=== PATIENT | male | born 1990 | race African-American/Black ===

== ENCOUNTER 2016-12-28 14:29 | Emergency (ER) | payer SELFPAY ==
--- NOTE | 2016-12-28 14:34 | ER Document Report ---
ED Medical Screen (RME) - General Stated Complaint: TOOTH PAIN Time seen by provider: 14:32 Mode of Arrival: Ambulatory Information source: Patient Notes: 26-year-old male presents to ED for dental pain times a week. Top left jaw pain states he has 2 broken teeth in this area is not sure which tooth is the one giving him the pain I have greeted and performed a rapid initial assessment of this patient. A comprehensive ED assessment and evaluation of the patient, analysis of test results and completion of medical decision making process will be conducted by an additional ED providers. TRAVEL OUTSIDE OF THE [place] IN LAST 30 DAYS: No - Related Data Allergies/Adverse Reactions: No Known Allergies Allergy (Verified 12/28/16 14:32) Past Medical History Pulmonary Medical History: Reports: Hx Bronchitis Musculoskeltal Medical History: Reports Hx Musculoskeletal Trauma Traumatic Medical History: Reports: Hx Fractures - left ankle - Immunizations Immunizations up to date: Yes Hx Diphtheria, Pertussis, Tetanus Vaccination: Yes
[2016-12-28] MEDS ORDERED: IBUPROFEN 800 MG TABLET PO ONE (14:36)
--- NOTE | 2016-12-28 16:22 | ER Document Report ---
ED Oral Problem - General Time seen by provider: 17:30 Mode of Arrival: Ambulatory Information source: Patient TRAVEL OUTSIDE OF THE [place] IN LAST 30 DAYS: No - HPI Patient complains to provider of: Toothache Onset: Last week Onset: Gradual Quality of pain: Achy, Throbbing Associated symptoms: Dental decay - General Chief Complaint: Toothache Stated Complaint: TOOTH PAIN Notes: Patient is a 26-year-old male since the emergency department with complaints of toothache. Patient states that 2-3 years ago his tooth broke off, and he has several others in poor condition. Patient states over the past week he has had increased pain to his mouth and jaw and there is areas where the pertinent to this. Patient's complaint is primarily to the right upper teeth and gum line. Patient states that his pain radiates all across his mouth. Patient states that he does not have a dentist or dental insurance. Patient has no known allergies. (MARIO BARBOSA) - Related Data Allergies/Adverse Reactions: No Known Allergies Allergy (Verified 12/28/16 14:32) Past Medical History - General Information source: Patient - Social History Smoking Status: Current Every Day Smoker Chew tobacco use (# tins/day): No Frequency of alcohol use: Occasional Drug Abuse: None Family History: Reviewed & Not Pertinent, Arthritis, CAD, CVA, DM, Hyperlipidemia, Hypertension, Malignancy, Thyroid Disfunction Patient has suicidal ideation: No Patient has homicidal ideation: No Pulmonary Medical History: Reports: Hx Bronchitis Musculoskeltal Medical History: Reports Hx Musculoskeletal Trauma Traumatic Medical History: Reports: Hx Fractures - left ankle Surgical Hx: Negative - Immunizations Immunizations up to date: Yes Hx Diphtheria, Pertussis, Tetanus Vaccination: Yes Review of Systems - Review of Systems Constitutional: No symptoms reported EENT: See HPI, Dental problem Cardiovascular: No symptoms reported Respiratory: No symptoms reported Gastrointestinal: No symptoms reported Genitourinary: No symptoms reported Male Genitourinary: No symptoms reported Musculoskeletal: No symptoms reported Skin: No symptoms reported Hematologic/Lymphatic: No symptoms reported Neurological/Psychological: No symptoms reported -: Yes All other systems reviewed and negative Physical Exam - Vital signs Interpretation: Normal - General General appearance: Appears well, Alert In distress: Mild - HEENT Head: Normocephalic, Atraumatic Eyes: Normal Pupils: PERRL Mouth/Lips: Other - dental decay on the right upper teeth, numbers 12, 13, 15 Mucous membranes: Normal - Respiratory Respiratory status: No respiratory distress Chest status: Nontender Breath sounds: Normal Chest palpation: Normal - Cardiovascular Rhythm: Regular Heart sounds: Normal auscultation Murmur: No - Abdominal Inspection: Normal Distension: No distension Bowel sounds: Normal Tenderness: Nontender Organomegaly: No organomegaly - Back Back: Normal, Nontender - Extremities General upper extremity: Normal inspection, Normal ROM, Normal strength General lower extremity: Normal inspection, Normal ROM, Normal strength - Neurological Neuro grossly intact: Yes Cognition: Normal Orientation: AAOx4 Raphael Coma Scale Eye Opening: Spontaneous Raphael Coma Scale Verbal: Oriented Raphael Coma Scale Motor: Obeys Commands Raphael Coma Scale Total: 15 Speech: Normal - Psychological Associated symptoms: Normal affect, Normal mood - Skin Skin Temperature: Warm Skin Moisture: Dry Skin Color: Normal Course - Re-evaluation Re-evalutation: 12/28/16 Patient is a 26-year-old male who comes in complaining of dental pain. Patient has had cracked teeth recently started hurting again. He is supposed to be following up with a dentist this week. Patient will be started on penicillin and given pain medication. No evidence for abscess at this time. Stable for discharge. Return if any worsening or concerning symptoms. Understands and agrees with plan. (MERYL SALEH) - Vital Signs Vital signs: Temp Pulse Resp BP Pulse Ox 98.0 F 69 16 132/78 H 98 12/28/16 14:34 12/28/16 16:32 12/28/16 16:32 12/28/16 16:32 12/28/16 16:32 (MARIO BARBOSA) (MERYL SALEH) Discharge - Discharge Clinical Impression: Toothache, Dental caries Condition: Stable Disposition: HOME, SELF-CARE Instructions: Toothache ([facility]), Penicillin V K ([facility]), Oral Narcotic Medication ( [facility]) Prescriptions: Oxycodone HCl/Acetaminophen [Percocet 5-325 mg Tablet] 1 - 2 tab PO BIDP PRN # 15 tablet PRN Reason: Penicillin V Potassium [Penicillin Vk 500 mg Tablet] 500 mg PO QID #40 tablet Forms: Elevated Blood Pressure, Return to Work Scribe Attestation: 12/28/16 21:48 I personally performed the services described in the documentation, reviewed and edited the documentation which was dictated to the scribe in my presence, and it accurately records my words and actions. (MERYL SALEH) Scribe Documentation - Scribe Written by Caty:: Mario Barbosa 12/28/16 19:20 acting as scribe for :: Dany
[2016-12-28 16:34] VITALS: BP 132/78
== END 2016-12-28 16:32 | disposition home or self-care (01) ==
LOC: ER 14:29
DX: K02.9 Dental caries, unspecified (principal); K08.9 Disorder of teeth and supporting structures, unspecified; F17.200 Nicotine dependence, unspecified, uncomplicated
CPT/HCPCS: 99282

== ENCOUNTER 2017-09-10 09:22 | Emergency (ER) | payer SELFPAY ==
[2017-09-10] MEDS ORDERED: NORMAL SALINE 1000 ML 1,000 ML IV ONE (11:25)
[2017-09-10] MEDS ORDERED: PROCHLORPERAZINE EDISYLATE INJ 10 MG/2 ML VIAL IV ONE (11:30)
[2017-09-10] MEDS ORDERED: DIPHENHYDRAMINE HCL 50 MG/ML VIAL IV ONE (11:33)
--- NOTE | 2017-09-10 11:34 | ER Document Report ---
ED Headache - General Chief Complaint: Headache >24 hrs old Stated Complaint: HEADACHE Time Seen by Provider: 09/10/17 10:41 Mode of Arrival: Ambulatory Information source: Patient Notes: Patient is a 26-year-old male who was diagnosed in presenting this year with glaucoma, who takes eyedrops every night, who presents to the ER today for right sided headache, that feels like it is behind his eye but also on the entire right side of his head. Patient states this been going on for 3 days. He has no history of migraines. He states he has been taking ibuprofen and Tylenol at home which have not been helping. He admits to light sensitivity and blurred vision in the right eye but states that that is not new. He denies any nausea, vomiting, fevers or chills. TRAVEL OUTSIDE OF THE [place] IN LAST 30 DAYS: No - Related Data Allergies/Adverse Reactions: No Known Allergies Allergy (Verified 12/28/16 14:32) Past Medical History - General Information source: Patient - Social History Smoking Status: Former Smoker Family History: Reviewed & Not Pertinent, Arthritis, CAD, CVA, DM, Hyperlipidemia, Hypertension, Malignancy, Thyroid Disfunction Pulmonary Medical History: Reports: Hx Bronchitis Renal/ Medical History: Denies: Hx Peritoneal Dialysis Musculoskeltal Medical History: Reports Hx Musculoskeletal Trauma Traumatic Medical History: Reports: Hx Fractures - left ankle - Immunizations Immunizations up to date: Yes Hx Diphtheria, Pertussis, Tetanus Vaccination: Yes Review of Systems - Review of Systems Constitutional: No symptoms reported EENT: See HPI Cardiovascular: No symptoms reported Respiratory: No symptoms reported Gastrointestinal: No symptoms reported Genitourinary: No symptoms reported Male Genitourinary: No symptoms reported Musculoskeletal: No symptoms reported Skin: No symptoms reported Hematologic/Lymphatic: No symptoms reported Neurological/Psychological: See HPI Physical Exam - Vital signs Vitals: Temp Pulse Resp BP Pulse Ox 98.2 F 60 20 132/67 H 99 09/10/17 09:55 09/10/17 09:55 09/10/17 09:55 09/10/17 09:55 09/10/17 09:55 - Notes Notes: PHYSICAL EXAMINATION: GENERAL: Lying in dark room, in no acute distress. HEAD: Atraumatic, normocephalic. EYES: Pupils equal round and reactive to light, extraocular movements intact, sclera anicteric, conjunctiva are normal. NECK: Normal range of motion, supple without lymphadenopathy LUNGS: CTAB and equal. No wheezes rales or rhonchi. HEART: Regular rate and rhythm without murmurs Negative EXTREMITIES: Normal range of motion, no pitting edema. No cyanosis. NEUROLOGICAL: Cranial nerves grossly intact. Normal sensory/motor exams. PSYCH: Normal mood, normal affect. SKIN: Warm, Dry, normal turgor, no rashes or lesions noted Course - Re-evaluation Re-evalutation: 09/10/17 13:08 pressures to the right eye were 25 and 24 consecutively, pressure to the left eye was measured once and was 27. Patient feels much better after IV Compazine and Benadryl and some fluids. Patient would like to go home. I did discuss this case with my attending, Dr. Najera, who agrees with plan to discharge. - Vital Signs Vital signs: Temp Pulse Resp BP Pulse Ox 98.2 F 60 20 132/67 H 99 09/10/17 09:55 09/10/17 09:55 09/10/17 09:55 09/10/17 09:55 09/10/17 09:55 Procedures - Eye Procedure Bilateral Time completed: 13:11 Eye Irrigated w/ Saline (ccs): 30 Alcaine Drops Administered: Yes Fluorescein applied: Right Discharge - Discharge Clinical Impression: Right-sided headache Condition: Stable Disposition: HOME, SELF-CARE Additional Instructions: Return immediately for any new or worsening symptoms. Follow up with eye doctor, call tomorrow to make followup appointment. Prescriptions: Promethazine HCl [Phenergan 25 mg Tablet] 1 - 2 tab PO Q6H PRN #15 tablet PRN Reason: Referrals: GERMÁN MORTON DO [ACTIVE STAFF] - Follow up as needed
[2017-09-10 13:34] VITALS: BP 125/52
== END 2017-09-10 13:34 | disposition home or self-care (01) ==
LOC: ER 09:22
DX: R51 Headache (principal); H40.9 Unspecified glaucoma; Z79.899 Other long term (current) drug therapy; H53.8 Other visual disturbances; H53.141 Visual discomfort, right eye; Z87.891 Personal history of nicotine dependence
CPT/HCPCS: 99284; 96361; 96374; 96375; J1200; J0780; J7030

== ENCOUNTER 2017-12-17 19:12 | Emergency (ER) | payer SELFPAY ==
[2017-12-17 19:23] VITALS: BP 141/70
[2017-12-17] MEDS ORDERED: IBUPROFEN 800 MG TABLET PO ONE (23:03)
[2017-12-17] MEDS ORDERED: OXYCODONE HCL IR 5 MG TABLET PO ONE (23:04)
[2017-12-17] MEDS ORDERED: PENICILLIN V POTASSIUM 500 MG TABLET PO ONE (23:04)
--- NOTE | 2017-12-17 23:08 | ER Document Report ---
ED General - General Chief Complaint: Toothache Stated Complaint: TOOTHACHE Time Seen by Provider: 12/17/17 23:01 Information source: Patient TRAVEL OUTSIDE OF THE [place] IN LAST 30 DAYS: No - HPI Patient complains to provider of: toothache Onset: Other - 2 weeks ago Onset/Duration: Gradual, Worse Quality of pain: Achy Severity: Moderate Associated symptoms: None Exacerbated by: Denies Similar symptoms previously: Yes Recently seen / treated by doctor: No - Related Data Allergies/Adverse Reactions: No Known Allergies Allergy (Verified 12/17/17 19:14) Past Medical History - General Information source: Patient - Social History Smoking Status: Unknown if Ever Smoked Cigarette use (# per day): No Chew tobacco use (# tins/day): No Smoking Education Provided: No Frequency of alcohol use: Social Drug Abuse: None Lives with: Family Family History: Reviewed & Not Pertinent, Arthritis, CAD, CVA, DM, Hyperlipidemia, Hypertension, Malignancy, Thyroid Disfunction Patient has suicidal ideation: No Patient has homicidal ideation: No - Past Medical History Cardiac Medical History: Reports: None Pulmonary Medical History: Reports: Hx Bronchitis EENT Medical History: Reports: None Neurological Medical History: Reports: None Endocrine Medical History: Reports: None Renal/ Medical History: Reports: None. Denies: Hx Peritoneal Dialysis Malignancy Medical History: Reports None GI Medical History: Reports: None Musculoskeltal Medical History: Reports Hx Musculoskeletal Trauma Skin Medical History: Reports None Psychiatric Medical History: Reports: None Traumatic Medical History: Reports: Hx Fractures - left ankle Past Surgical History: Reports: None - Immunizations Immunizations up to date: Yes Hx Diphtheria, Pertussis, Tetanus Vaccination: Yes Review of Systems - Review of Systems Constitutional: No symptoms reported EENT: See HPI Cardiovascular: No symptoms reported Respiratory: No symptoms reported Gastrointestinal: No symptoms reported Genitourinary: No symptoms reported Male Genitourinary: No symptoms reported Musculoskeletal: No symptoms reported Skin: No symptoms reported Neurological/Psychological: No symptoms reported Physical Exam - Vital signs Vitals: Temp Pulse Resp BP Pulse Ox 98.1 F 57 L 18 141/70 H 99 12/17/17 19:21 12/17/17 19:21 12/17/17 19:21 12/17/17 19:21 12/17/17 19:21 - Notes Notes: PHYSICAL EXAMINATION: GENERAL: Well-appearing, well-nourished and in no acute distress. HEAD: Atraumatic, normocephalic. EYES: Pupils equal round and reactive to light, extraocular movements intact, sclera anicteric, conjunctiva are normal. ENT: Nares patent. Moist mucous membranes. Patient has tenderness with palpation of tooth #32 there is some surrounding erythematous gingiva. No abscess noted. No cracked tooth observed. NECK: Normal range of motion, supple without lymphadenopathy LUNGS: Breath sounds clear to auscultation bilaterally and equal. No wheezes rales or rhonchi. HEART: Regular rate and rhythm without murmurs ABDOMEN: Soft, nontender, nondistended abdomen. No guarding, no rebound. No masses appreciated. Musculoskeletal: Normal range of motion, no pitting or edema. No cyanosis. NEUROLOGICAL: Cranial nerves grossly intact. Normal speech, normal gait. PSYCH: Normal mood, normal affect. SKIN: Warm, Dry, normal turgor, no rashes or lesions noted. Course - Re-evaluation Re-evalutation: 12/17/17 23:12 Has been here before for toothache but not recently. I did tell him to call [facility] so that he could have a dental exam. - Vital Signs Vital signs: Temp Pulse Resp BP Pulse Ox 98.1 F 57 L 18 141/70 H 99 12/17/17 19:21 12/17/17 19:21 12/17/17 19:21 12/17/17 19:21 12/17/17 19:21 Discharge - Discharge Clinical Impression: Tooth ache Disposition: HOME, SELF-CARE Instructions: Oral Narcotic Medication ([facility]), Penicillin V K ([facility]), Toothache ( [facility]) Prescriptions: Hydrocodone/Acetaminophen [[place] 5-325 mg Tablet] 1 tab PO Q4 3 Days #15 tablet Penicillin V Potassium [Penicillin Vk 500 mg Tablet] 500 mg PO QID #28 tablet Referrals: [facility] [Provider Group] - Follow up as needed
== END 2017-12-17 23:20 | disposition home or self-care (01) ==
LOC: ER 19:12
DX: K08.9 Disorder of teeth and supporting structures, unspecified (principal)
CPT/HCPCS: 99282

== ENCOUNTER 2018-01-30 18:39 | Emergency (ER) | payer SELFPAY ==
[2018-01-30 18:47] VITALS: BP 130/66
[2018-01-30] MEDS ORDERED: TETRACAINE HCL 0.5% OPH SOLN 2 ML ONE (19:39)
--- NOTE | 2018-01-30 19:58 | ER Document Report ---
ED Eye Complaint - General Chief Complaint: Eye Problem Stated Complaint: EYE PROBLEM Time Seen by Provider: 01/30/18 19:28 Mode of Arrival: Ambulatory Information source: Patient TRAVEL OUTSIDE OF THE [place] IN LAST 30 DAYS: No - HPI Patient complains to provider of: Right eye vision changes Eye location: Right Injury: No Quality of pain: No pain Associated symptoms: Decreased vision, Loss of vision Notes: Patient is a 27-year-old male presenting to the emergency room today complaining of vision loss in the right eye, states he initially noted this back in May or June when he was incarcerated, he was seen by an "eye doctor" while incarcerated who questioned the possibility of glaucoma but patient was never officially diagnosed with this or started on medications, and he has not followed up since being released from penitentiary in August, over the past week he has noted that his vision has gotten significantly worse, he denies any pain, no fevers, no injury, he did note an bug bite to the right perioral area in May or June of last year - Related Data Allergies/Adverse Reactions: No Known Allergies Allergy (Verified 01/30/18 18:41) Past Medical History - General Information source: Patient - Social History Smoking Status: Smoker,Current Status Unk Chew tobacco use (# tins/day): No Frequency of alcohol use: Occasional Drug Abuse: Marijuana Family History: Reviewed & Not Pertinent, Arthritis, CAD, CVA, DM, Hyperlipidemia, Hypertension, Malignancy, Thyroid Disfunction Patient has suicidal ideation: No Patient has homicidal ideation: No Pulmonary Medical History: Reports: Hx Bronchitis Renal/ Medical History: Denies: Hx Peritoneal Dialysis Musculoskeltal Medical History: Reports Hx Musculoskeletal Trauma Traumatic Medical History: Reports: Hx Fractures - left ankle - Immunizations Immunizations up to date: Yes Hx Diphtheria, Pertussis, Tetanus Vaccination: Yes Review of Systems - Review of Systems Constitutional: No symptoms reported EENT: Blurred vision Cardiovascular: No symptoms reported Respiratory: No symptoms reported Gastrointestinal: No symptoms reported Genitourinary: No symptoms reported Male Genitourinary: No symptoms reported Musculoskeletal: No symptoms reported Skin: No symptoms reported Hematologic/Lymphatic: No symptoms reported Neurological/Psychological: No symptoms reported -: Yes All other systems reviewed and negative Physical Exam - Vital signs Vitals: Temp Pulse Resp BP Pulse Ox 98.7 F 57 L 16 130/66 H 99 01/30/18 18:46 01/30/18 18:46 01/30/18 18:46 01/30/18 18:46 01/30/18 18:46 - Notes Notes: - General General appearance: Appears well, Alert In distress: None - HEENT Head: Normocephalic, Atraumatic Extraocular movements intact: Yes Eyelashes: Normal Pupils: PERRL - Respiratory Respiratory status: No respiratory distress - Cardiovascular Rhythm: Regular - Abdominal Inspection: Normal - Back Back: Normal - Extremities General upper extremity: Normal inspection General lower extremity: Normal inspection - Neurological Neuro grossly intact: Yes Orientation: AAOx4 Raphael Coma Scale Eye Opening: Spontaneous Raphael Coma Scale Verbal: Oriented Raphael Coma Scale Motor: Obeys Commands Raphael Coma Scale Total: 15 - Psychological Associated symptoms: Normal affect, Normal mood - Skin Skin Temperature: Warm Skin Moisture: Dry Skin Color: Normal - HEENT Conjunctiva: Normal Cornea: Normal Extraocular movements intact: Yes Eyelashes: Normal -: right: Pupils uneven - 6mm Visual acuity- Right eye: >20/200 Visual acuity- Left eye: 20/50 Visual acuity- Both eyes: 20/50 Corrective lenses worn: Yes - pt states he is wearing corrective contact lenses at time of exam. Right intraocular pressure: 31 Left intraocular pressure: 25 Anterior chamber: Normal Course - Re-evaluation Re-evalutation: 01/30/18 20:04 Patient with vision loss in the right eye, first noted 6-8 months ago, worsening over the past week, it is painless, he does have slightly uneven pupils with the right pupil slightly dilated, intraocular pressure is measured at 31, 31 and 36 on the right eye, 21, 21 and 25 on the left eye, visual acuity is 20/200 in the right eye and 20/50 in the left eye, patient was discussed with waist fitter who is on-call who agrees to see patient in his office tomorrow for further evaluation and treatment, this plan was discussed with patient at bedside who is in agreement, he was provided with information for follow-up as well, patient acknowledges understanding and agreement with this plan - Vital Signs Vital signs: Temp Pulse Resp BP Pulse Ox 98.7 F 57 L 16 130/66 H 99 01/30/18 18:46 01/30/18 18:46 01/30/18 18:46 01/30/18 18:46 01/30/18 18:46 - Consults Janiya Time consulted: 20:01 Reason for consultation: 01/30/18 20:01 Patient physical exam findings, symptoms discussed with on-call waist fitter who agrees to see patient in office tomorrow, requested that patient call his office at 8:00 in the morning for an appointment Consulted provider: follow-up in office Discharge - Discharge Clinical Impression: Vision changes Condition: Stable Disposition: HOME, SELF-CARE Additional Instructions: Call the waist fitter first thing in the morning at 8 AM at [phone] to schedule appointment to be seen later in the day tomorrow. Referrals: RADHA MEMBRENO, DO [ACTIVE STAFF] - Follow up as needed
[2018-01-30] MEDS ORDERED: TETRACAINE HCL 0.5% OPH SOLN 2 ML OU ONE (20:00)
== END 2018-01-30 20:15 | disposition home or self-care (01) ==
LOC: ER 18:39
DX: H53.9 Unspecified visual disturbance (principal); F17.200 Nicotine dependence, unspecified, uncomplicated
CPT/HCPCS: 99283

== ENCOUNTER 2018-03-15 01:44 | Emergency (ER) | payer SELFPAY ==
[2018-03-15] MEDS ORDERED: HYDROCODONE/ACETAMINOPHEN 5-325 MG (6 TAB/ER DISP) PO PRN (03:03)
[2018-03-15] MEDS ORDERED: CLINDAMYCIN HCL 150 MG CAPSULE PO ONE (03:03)
--- NOTE | 2018-03-15 03:06 | ER Document Report ---
HPI - HPI Patient complains to provider of: Dental pain Onset: Last week Onset/Duration: Persistent Quality of pain: Achy Pain Level: 5 Context: Patient presents complaining of dental pain to right lower jaw. Patient denies any fever or facial swelling. Associated Symptoms: denies: Fever Exacerbated by: Denies Relieved by: Denies Similar symptoms previously: Yes Recently seen / treated by doctor: No - ROS ROS below otherwise negative: Yes Systems Reviewed and Negative: Yes All other systems reviewed and negative - CONSTITUTIONAL Constitutional: DENIES: Fever, Chills - EENT EENT: REPORTS: Ear Pain. DENIES: Sore Throat, Eye problems - NEURO Neurology: REPORTS: Headache. DENIES: Weakness, Vision blurred, Dizzinesss / Vertigo - CARDIOVASCULAR Cardiovascular: DENIES: Chest pain - RESPIRATORY Respiratory: DENIES: Trouble Breathing, Coughing - GASTROINTESTINAL Gastrointestinal: DENIES: Abdominal Pain, Black / Bloody Stools - URINARY Urinary: DENIES: Dysuria, Urgency, Frequency - MUSCULOSKELETAL Musculoskeletal: DENIES: Extremity pain - DERM Skin Color: Normal Past Medical History - General Information source: Patient - Social History Smoking Status: Never Smoker Chew tobacco use (# tins/day): No Frequency of alcohol use: None Drug Abuse: Marijuana Occupation: None Lives with: Family Family History: Reviewed & Not Pertinent, Arthritis, CAD, CVA, DM, Hyperlipidemia, Hypertension, Malignancy, Thyroid Disfunction Patient has suicidal ideation: No Patient has homicidal ideation: No Pulmonary Medical History: Reports: Hx Bronchitis EENT Medical History: Reports: Eyes - Glaucoma Renal/ Medical History: Denies: Hx Peritoneal Dialysis Musculoskeltal Medical History: Reports Hx Musculoskeletal Trauma Traumatic Medical History: Reports: Hx Fractures - left ankle Surgical Hx: Negative - Immunizations Immunizations up to date: Yes Hx Diphtheria, Pertussis, Tetanus Vaccination: Yes Vertical Provider Document - CONSTITUTIONAL Agree With Documented VS: Yes Exam Limitations: No Limitations General Appearance: WD/WN, No Apparent Distress - INFECTION CONTROL TRAVEL OUTSIDE OF THE [place] IN LAST 30 DAYS: No - HEENT HEENT: Atraumatic, Normocephalic Mouth Diagram: 1 - Dental caries, tenderness, no gingival abscess, no sublingual or submental swelling - NECK Neck: Normal Inspection - RESPIRATORY Respiratory: Breath Sounds Normal, No Respiratory Distress - CARDIOVASCULAR Cardiovascular: Regular Rate, Regular Rhythm - MUSCULOSKELETAL/EXTREMETIES Musculoskeletal/Extremeties: MAEW - NEURO Level of Consciousness: Awake, Alert, Appropriate - DERM Integumentary: Warm, Dry Course - Re-evaluation Re-evalutation: 03/15/18 03:04 Controlled substance database reviewed. Patient encouraged to follow-up with dental care provider. Patient states that he has had penicillin in the past and states that it did not help his symptoms, patient is requesting a prescription for clindamycin. - Vital Signs Vital signs: Temp Pulse Resp BP Pulse Ox 98.1 F 62 18 133/75 H 100 03/15/18 01:44 03/15/18 01:44 03/15/18 01:44 03/15/18 01:44 03/15/18 01:44 Discharge - Discharge Clinical Impression: Toothache Condition: Stable Disposition: HOME, SELF-CARE Instructions: Clindamycin ([facility]), Toothache ([facility]) Additional Instructions: Return immediately for any new or worsening symptoms Followup with your primary care provider, call tomorrow to make a followup appointment Follow-up with a dental care provider for recheck Prescriptions: Clindamycin HCl [Cleocin 300 mg Capsule] 300 mg PO TID #21 capsule Naproxen [Naprosyn 250 Nmg Tablet] 1 tab PO BID #14 tablet Referrals: [facility] [Provider Group] - Follow up as needed
[2018-03-15 03:44] VITALS: BP 126/82
== END 2018-03-15 03:44 | disposition home or self-care (01) ==
LOC: ER 01:44
DX: K08.89 Other specified disorders of teeth and supporting structures (principal); K02.9 Dental caries, unspecified; R68.84 Jaw pain; H92.09 Otalgia, unspecified ear; R51 Headache; F12.10 Cannabis abuse, uncomplicated; H40.9 Unspecified glaucoma
CPT/HCPCS: 99283

== ENCOUNTER 2019-04-23 10:44 | Emergency (ER) | payer SELFPAY ==
[2019-04-23 10:53] VITALS: BP 150/67
[2019-04-23] MEDS ORDERED: ACETAMINOPHEN 325 MG TABLET PO ONE (12:08)
--- NOTE | 2019-04-23 12:12 | ER Document Report ---
HPI - HPI Patient complains to provider of: Sore throat, headache Time Seen by Provider: 04/23/19 12:03 Onset/Duration: Persistent Quality of pain: Achy Pain Level: 3 Context: Patient presents with sore throat headache and cough for the past 3 days. Patient denies any fever. Patient does report recent household sick contacts with similar symptoms. Associated Symptoms: Nonproductive cough, Rhinnorhea, Sore throat. denies: Chest pain, Productive cough, Diarrhea, Earache, Fever Exacerbated by: Denies Relieved by: Denies Similar symptoms previously: Yes Recently seen / treated by doctor: No - ROS ROS below otherwise negative: Yes Systems Reviewed and Negative: Yes All other systems reviewed and negative - CONSTITUTIONAL Constitutional: DENIES: Fever - EENT EENT: REPORTS: Sore Throat, Nasal Drainage-Clear - NEURO Neurology: REPORTS: Headache. DENIES: Vision blurred - CARDIOVASCULAR Cardiovascular: DENIES: Chest pain - RESPIRATORY Respiratory: REPORTS: Coughing. DENIES: Trouble Breathing - GASTROINTESTINAL Gastrointestinal: DENIES: Abdominal Pain, Nausea, Patient vomiting, Diarrhea - MUSCULOSKELETAL Musculoskeletal: DENIES: Back Pain - DERM Skin Color: Normal Skin Problems: None Past Medical History - General Information source: Patient - Social History Smoking Status: Current Every Day Smoker Chew tobacco use (# tins/day): No Frequency of alcohol use: Occasional Drug Abuse: Marijuana Occupation: [employer] Lives with: Family Family History: Reviewed & Not Pertinent, Arthritis, CAD, CVA, DM, Hyperlipidemia, Hypertension, Malignancy, Thyroid Disfunction Patient has suicidal ideation: No Patient has homicidal ideation: No Pulmonary Medical History: Reports: Hx Bronchitis EENT Medical History: Reports: Eyes - Glaucoma Renal/ Medical History: Denies: Hx Peritoneal Dialysis Musculoskeletal Medical History: Reports Hx Musculoskeletal Trauma Traumatic Medical History: Reports: Hx Fractures - left ankle Past Surgical History: Reports: Other - Ocular surgery - Immunizations Immunizations up to date: Yes Hx Diphtheria, Pertussis, Tetanus Vaccination: Yes Vertical Provider Document - CONSTITUTIONAL Agree With Documented VS: Yes Exam Limitations: No Limitations General Appearance: WD/WN, No Apparent Distress - INFECTION CONTROL TRAVEL OUTSIDE OF THE [place] IN LAST 30 DAYS: No - HEENT HEENT: Atraumatic, Normocephalic, Pharyngeal Tenderness, Pharyngeal Erythema. negative: Pharyngeal Exudate, Tympanic Membrane Red, Tympanic Membrane Bulging - NECK Neck: Normal Inspection, Supple. negative: Lymphadenopathy-Left, Lymphadenopathy-Right Notes: No meningismus - RESPIRATORY Respiratory: Breath Sounds Normal, No Respiratory Distress - CARDIOVASCULAR Cardiovascular: Regular Rate, Regular Rhythm, No Murmur - BACK Back: Normal Inspection - MUSCULOSKELETAL/EXTREMETIES Musculoskeletal/Extremeties: MAMARQUISE, FROM - NEURO Level of Consciousness: Awake, Alert, Appropriate Motor/Sensory: No Motor Deficit - DERM Integumentary: Warm, Dry, No Rash Course - Re-evaluation Re-evalutation: 04/23/19 13:08 Patient presents with symptoms worrisome for a tension headache at this time his pain is reproducible with palpation of the lateral sides of his neck at the insertion point on the occipital condyle. No pneumonia noted on x-ray, rapid strep test is negative. Will obtain culture at this time. Patient does state that he recently finished treatment for exposure to TB and was worried about his recent exposure. Patient denies any fevers night sweats or weight loss. Patient encouraged to return as needed for any new or worsening symptoms at this time. - Vital Signs Vital signs: Temp Pulse Resp BP Pulse Ox 98.0 F 59 L 16 150/67 H 98 04/23/19 10:52 04/23/19 10:52 04/23/19 10:52 04/23/19 10:52 04/23/19 10:52 - Diagnostic Test Radiology reviewed: Image reviewed, Reports reviewed Discharge - Discharge Clinical Impression: Sore throat, Tension headache Upper respiratory infection Qualifiers: URI type: unspecified URI Qualified Code(s): J06.9 - Acute upper respiratory infection, unspecified Condition: Stable Disposition: HOME, SELF-CARE Instructions: Acetaminophen, Muscle Relaxers ([facility]), Sore Throat ([facility]), Tension Headache ([facility]), Upper Respiratory Illness ([facility]) Additional Instructions: Return immediately for any new or worsening symptoms Followup with your primary care provider, call tomorrow to make a followup appointment Throat culture is pending, we will call if you need any different treatment Prescriptions: Cyclobenzaprine HCl [Flexeril 10 Mg Tablet] 10 mg PO TID #15 tablet Fluticasone Propionate [Flonase Nasal [place] 50 Mcg/[place] 16 gm] 2 spray NASL DAILY #1 bottle Naproxen [Naprosyn 250 Nmg Tablet] 1 tab PO BID #14 tablet Forms: Smoking Cessation Education, Return to Work Referrals: [facility] [Provider Group] - Follow up as needed
--- NOTE | 2019-04-23 12:51 | RADIOLOGY REPORT (SQ) ---
EXAM DESCRIPTION: CHEST 2 VIEWS COMPLETED DATE/TIME: 04/23/2019 12:30 pm REASON FOR STUDY: cough COMPARISON: None. EXAM PARAMETERS: NUMBER OF VIEWS: two views TECHNIQUE: Digital Frontal and Lateral radiographic views of the chest acquired. RADIATION DOSE: NA LIMITATIONS: none FINDINGS: LUNGS AND PLEURA: No opacities, masses or pneumothorax. No pleural effusion. MEDIASTINUM AND HILAR STRUCTURES: No masses or contour abnormalities. HEART AND VASCULAR STRUCTURES: Heart normal size. No evidence for failure. BONES: No acute findings. HARDWARE: None in the chest. OTHER: No other significant finding. IMPRESSION: NO ACUTE RADIOGRAPHIC FINDING IN THE CHEST. TECHNICAL DOCUMENTATION: JOB ID: [id number] [employer]- All Rights Reserved Reading location - IP/workstation name: [email or web address]
== END 2019-04-23 13:25 | disposition home or self-care (01) ==
LOC: ER 10:44
DX: J06.9 Acute upper respiratory infection, unspecified (principal); G44.209 Tension-type headache, unspecified, not intractable; J02.9 Acute pharyngitis, unspecified; R05 Cough; J34.89 Other specified disorders of nose and nasal sinuses; F17.200 Nicotine dependence, unspecified, uncomplicated
CPT/HCPCS: 71046; 87070; 87880; 99283

== ENCOUNTER 2019-05-07 12:08 | Emergency (ER) | payer SELFPAY ==
[2019-05-07 12:13] VITALS: BP 124/60
--- NOTE | 2019-05-07 12:40 | ER Document Report ---
HPI - HPI Time Seen by Provider: 05/07/19 12:26 Pain Level: 2 Notes: Patient is a 28-year-old male no significant past medical history who presents complaining of a raw area to his skin to his left axilla over the past couple days since switching his deodorant to a new brand. Patient states that he does work at a experimental [employer] and is not sure if any chemical got to that area. Patient has associated burning without any obvious abscess or purulent discharge. He has not noticed any other areas of irritation on his skin. Denies drug allergies. He has not had any new foods and does not take any medicines orally. Denies any headache, fever, URI, sore throat, chest pain, palpitations, syncope, cough, shortness of breath, wheeze, dyspnea, abdominal pain, nausea/vomiting/diarrhea, urinary retention, dysuria, hematuria, loss of control of bowel or bladder, numbness/tingling, muscle paralysis/weakness. - ROS Systems Reviewed and Negative: Yes All other systems reviewed and negative - CONSTITUTIONAL Constitutional: DENIES: Fever, Chills Past Medical History - Social History Smoking Status: Unknown if Ever Smoked Frequency of alcohol use: None Drug Abuse: None Family History: Reviewed & Not Pertinent, Arthritis, CAD, CVA, DM, Hyperlipide may, Hypertension, Malignancy, Thyroid Disfunction Patient has suicidal ideation: No Patient has homicidal ideation: No Pulmonary Medical History: Reports: Hx Bronchitis Renal/ Medical History: Denies: Hx Peritoneal Dialysis Musculoskeletal Medical History: Reports Hx Musculoskeletal Trauma Traumatic Medical History: Reports: Hx Fractures - left ankle Past Surgical History: Reports: Other - Ocular surgery - Immunizations Immunizations up to date: Yes Hx Diphtheria, Pertussis, Tetanus Vaccination: Yes Vertical Provider Document - CONSTITUTIONAL Agree With Documented VS: Yes Notes: PHYSICAL EXAMINATION: GENERAL: Well-appearing, well-nourished and in no acute distress. HEAD: Atraumatic, normocephalic. EYES: Pupils equal round and reactive to light, extraocular movements intact, sclera anicteric, conjunctiva are normal. ENT: Nares patent and without discharge. oropharynx clear without exudates. No tonsilar hypertrophy or erythema. Moist mucous membranes. NECK: Normal range of motion, supple without lymphadenopathy LUNGS: Breath sounds clear to auscultation bilaterally and equal. No wheezes rales or rhonchi. HEART: Regular rate and rhythm without murmurs, rubs, gallops. ABDOMEN: Soft, nontender, nondistended abdomen. No guarding, no rebound. Normal bowel sounds present. No CVA tenderness bilaterally. Musculoskeletal: FROM to passive/active. Strength 5+/5. Extremities: No cyanosis, clubbing, or edema b/l. Peripheral pulses 2+. Capillary refill less than 3 seconds. NEUROLOGICAL: Normal speech, normal gait. Normal sensory, motor exams PSYCH: Normal mood, normal affect. SKIN: small 1cm irregular area of raw appearing area of skin w/o any fluctuance, induration, purulence, streaks, or blistering noted. Non-tender to palp. - INFECTION CONTROL TRAVEL OUTSIDE OF THE [place] IN LAST 30 DAYS: No Course - Re-evaluation Re-evalutation: 05/07/19 12:47 Patient is an afebrile, well-hydrated, 28-year-old male who presents with nonspecific small rash to his left axilla which could be more of a contact/irritant dermatitis as his symptoms started once he switched his deodorants. Vitals are otherwise acceptable without significant tachycardia, tachypnea, or hypoxia. PE is otherwise unremarkable. No incision and drainage is warranted at this time as there is no induration, fluctuance, point of maximal tenderness. Wound dressing was placed with triple antibiotic ointment. Patient is nontoxic-appearing and is tolerating p.o. without difficulty. There is no other evidence of any skin sloughing or rash to the rest of his body or any necrosis. He does not take any medicines daily. Low suspicion for any necrotizing fasciitis, SJS, SSS, drug reaction, sepsis, meningitis, syphilis, Lyme disease, [place] spotted fever, or other systemic emergent condition at this time. Patient aware that condition can change from initial presentation and he needs to monitor symptoms closely and seek medical attention with any acute changes. Recheck with your PCM in 2 to 3 days. Consider consult with dermatology. Return to the ED with any other worsening/concerning symptoms as reviewed. Patient is in agreement. - Vital Signs Vital signs: Temp Pulse Resp BP Pulse Ox 98.3 F 60 18 124/60 98 05/07/19 12:12 05/07/19 12:12 05/07/19 12:12 05/07/19 12:12 05/07/19 12:12 Discharge - Discharge Clinical Impression: Rash and nonspecific skin eruption, Skin abrasion Condition: Stable Disposition: HOME, SELF-CARE Additional Instructions: Keep the skin clean Avoid use of any chemical/detergent to the area Wash with soap and water Tylenol/ibuprofen if needed Triple antibiotic ointment daily Take medication as directed Monitor for any worsening symptoms Recheck with your PCM in 3-5 days Return to the ED with any worsening symptoms and/or development of fever, headache, chest pain, palpitations, syncope, shortness of breath, trouble breathing, abdominal pain, n/v/d, abscess, purulent discharge, red streaks, worsening swelling, or other worsening symptoms that are concerning to you. Prescriptions: Mupirocin [Bactroban 2% Ointment 22 gm] 1 applic TP TID #1 tube Forms: Return to Work Referrals: JHONNY DUMONT DO [ACTIVE STAFF] - Follow up as needed
== END 2019-05-07 12:45 | disposition home or self-care (01) ==
LOC: ER 12:08
DX: R21 Rash and other nonspecific skin eruption (principal); S40.812A Abrasion of left upper arm, initial encounter; X58.XXXA Exposure to other specified factors, initial encounter
CPT/HCPCS: 99282

== ENCOUNTER 2019-06-11 08:38 | Emergency (ER) | payer SELFPAY ==
[2019-06-11] MEDS ORDERED: KETOROLAC TROMETHAMINE INJ/PF 30 MG/1 ML SDV IM ONE (10:09)
[2019-06-11] MEDS ORDERED: METOCLOPRAMIDE HCL 10 MG TABLET PO ONE (10:10)
[2019-06-11] MEDS ORDERED: CETIRIZINE 10 MG TABLET PO ONE (10:10)
--- NOTE | 2019-06-11 10:18 | ER Document Report ---
HPI - HPI Time Seen by Provider: 06/11/19 09:55 Pain Level: 2 Context: Patient is a 28-year-old male who presents to the emergency department with nasal congestion and headache. Patient states 1 week ago he did develop nasal congestion and runny nose that was yellow to green in color. Patient states he did take Claritin-D [id number] as he assumed it was allergies. Patient states this did initially help him. Patient states over the past 3 days he is developed a dry cough as well as a headache. Patient states the headache has gradually gotten worse over the past 3 days. Patient states that the headache will at times be in the front part of his head and then at times will be in the back part of his head. Patient denies neck pain. Patient denies fever. Patient denies blood in his sputum. Patient denies nausea vomiting or abdominal pain. Patient denies photosensitivity. She states that within the past 2 months he was released from [facility]. 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 Patient states he never had signs or symptoms were tested positive for tuberculosis and he was cleared by the health department. He denies sick contacts. - CONSTITUTIONAL Constitutional: DENIES: Fever, Chills - EENT EENT: DENIES: Sore Throat, Ear Pain, Eye problems - NEURO Neurology: REPORTS: Headache. DENIES: Weakness, Vision blurred, Dizzinesss / Vertigo - CARDIOVASCULAR Cardiovascular: DENIES: Chest pain - RESPIRATORY Respiratory: REPORTS: Coughing. DENIES: Trouble Breathing - GASTROINTESTINAL Gastrointestinal: DENIES: Abdominal Pain, Black / Bloody Stools - URINARY Urinary: DENIES: Dysuria, Urgency, Frequency - MUSCULOSKELETAL Musculoskeletal: DENIES: Extremity pain Past Medical History - General Information source: Patient - Social History Smoking Status: Current Every Day Smoker Chew tobacco use (# tins/day): No Frequency of alcohol use: Occasional Drug Abuse: None Lives with: Family Family History: Reviewed & Not Pertinent, Arthritis, CAD, CVA, DM, Hy perlipidemia, Hypertension, Malignancy, Thyroid Disfunction Patient has suicidal ideation: No Patient has homicidal ideation: No - Past Medical History Cardiac Medical History: Reports: None Pulmonary Medical History: Reports: Hx Bronchitis EENT Medical History: Reports: None Neurological Medical History: Reports: None Endocrine Medical History: Reports: None Renal/ Medical History: Reports: None. Denies: Hx Peritoneal Dialysis Malignancy Medical History: Reports None GI Medical History: Reports: None Musculoskeletal Medical History: Reports Hx Musculoskeletal Trauma Skin Medical History: Reports None Psychiatric Medical History: Reports: None Traumatic Medical History: Reports: Hx Fractures - left ankle Infectious Medical History: Reports: None Past Surgical History: Reports: Other - Ocular surgery - Immunizations Immunizations up to date: Yes Hx Diphtheria, Pertussis, Tetanus Vaccination: Yes Vertical Provider Document - CONSTITUTIONAL Agree With Documented VS: Yes Exam Limitations: No Limitations General Appearance: No Apparent Distress Notes: GENERAL: Well-appearing, well-nourished and in no acute distress. HEAD: Atraumatic, normocephalic. EYES: Pupils equal round and reactive to light, extraocular movements intact, sclera anicteric, conjunctiva are normal. ENT: TMs normal, nares patent, oropharynx clear without exudates. Tonsils mildy erythematous without exudate, moist mucous membranes. No sinus tenderness. No nuchal rigidity. NECK: Normal range of motion, supple without lymphadenopathy or JVD. LUNGS: Breath sounds clear to auscultation bilaterally and equal. No wheezes rales or rhonchi. HEART: Regular rate and rhythm without murmurs, rubs or gallops. ABDOMEN: Soft, nontender, normoactive bowel sounds. No guarding, no rebound. No masses appreciated. BACK: No cervical, thoracic, lumbar midline tenderness. No saddle anesthesia, normal distal neurovascular exam. GENITOURINARY: Deferred. EXTREMITIES: Normal range of motion, no pitting or edema. No clubbing or cyanosis. NEUROLOGICAL: Cranial nerves II through XII grossly intact. Normal speech, normal gait. PSYCH: Normal mood, normal affect. SKIN: Warm, Dry, normal turgor, no rashes or lesions noted. - INFECTION CONTROL TRAVEL OUTSIDE OF THE [place] IN LAST 30 DAYS: No Course - Re-evaluation Re-evalutation: 06/11/19 10:14 Upon initial evaluation patient sitting upright on stretcher drinking a beverage. Patient is nontoxic-appearing. Patient did not have a cough during physical assessment. Patient's symptoms are consistent with a viral illness. I will treat patient for his headache while in the emergency department and prescribed Zyrtec for allergies. I did inform the patient to return to the emergency department for worsening signs or symptoms to include continued symptoms over the next 7 to 10 days, fever, coughing up blood, chills, neck pain or neck stiffness or any other concerning signs or symptoms. - Vital Signs Vital signs: Temp Pulse Resp BP Pulse Ox 97.7 F 59 L 18 126/62 H 98 06/11/19 08:43 06/11/19 08:43 06/11/19 08:43 06/11/19 08:43 06/11/19 08:43 Discharge - Discharge Clinical Impression: Cough, Rhinorrhea Headache Qualifiers: Headache type: unspecified Headache chronicity pattern: unspecified pattern Intractability: not intractable Qualified Code(s): R51 - Headache Condition: Stable Disposition: HOME, SELF-CARE Instructions: Headache ([facility]), Reglan ([facility]), Toradol Injection ([facility]) Additional Instructions: You were seen in the emergency department for dry cough, nasal congestion and headache. You have stated that [id number] Claritin did initially help with your symptoms. I will place you on Zyrtec which is an allergy medication that you will take daily. I will prescribe you a 30-day dose of this. Take Tylenol or ibuprofen as needed for pain or headache. Please return to the emergency department for worsening signs or symptoms to include severe headache, neck stiffness, high fever, chest pain, coughing up blood, shortness of breath or any other concerning signs or symptoms. Her symptoms are consistent with a viral illness. Please continue to rest drink plenty of fluids.Upper Respiratory Illness You have a viral infection of the respiratory passages -- a "cold." This common infection causes nasal congestion, drainage, and often sore throat and cough. It is caused by a virus and is highly contagious. The disease usually lasts a week or more, though the worst symptoms are usually over in 3 or 4 days. There is no "cure" for the viral infection -- it must run its course. If there is a complication, such as bacterial infection in the nose, sinuses, middle ear, or bronchial tubes, antibiotics may be required, but antibiotics won 't affect the virus. If you smoke, you should STOP!! Drink plenty of fluids. A humidifier may help. An expectorant medication or decongestant may make you more comfortable. Use acetaminophen or ibuprofen for fever or aches. See the doctor if fever persists over two or three days, if there is any significant worsening of your symptoms, or if you simply fail to improve as expected. Headache The physician does not feel that the headache you are experiencing has a serious underlying cause. Most headaches are due to emotional stress, with resultant muscle tension (tension headache). Occasionally, headaches are secondary to changes in the blood vessels of the scalp (vascular headache and migraine headache). Sometimes, a headache is the first symptom of another developing illness, such as a viral infection. You have no evidence of stroke, bleeding, meningitis, or other serious cause of your headache. The treatment of headaches varies with the severity and cause of the pain. Not all headaches need pain shots. In fact, there is evidence that using narcotics for headaches may make them worse in the long run. The physician will determine the therapy that's in your best interest. If you develop a fever, if the headache is different from any you've previously experienced, or if the headache progressively worsens, then call your physician at once or go to the emergency room. Viral Syndrome The physician has diagnosed a viral infection. Viruses not only cause "colds," but can cause many different symptoms including generalized aching, fever, headache, cough, diarrhea, nausea, vomiting, and fatigue. The treatment, for the most part, is simply relief of symptoms. This means that antibiotics are usually not given. Rest, fluids, pain medications and, occasionally, medication for the specific symptoms that are most bothersome will be prescribed. Use good handwashing to avoid passing the virus to others. Shared toys should be cleaned with disinfectant. Clean the toilets, sinks, and counter surfaces in bathrooms. Launder clothing in hot water. Contact the physician if you develop any new or unusual symptoms such as severe headache, stiff neck, high fever, chest pain, productive cough, or shortness of breath. You should be rechecked if you don't see marked imp rovement within seven to 10 days. Prescriptions: Cetirizine HCl [Zyrtec 10 mg Tablet] 1 tab PO DAILY #30 tablet Forms: Return to Work
[2019-06-11 11:13] VITALS: BP 122/69
== END 2019-06-11 11:13 | disposition home or self-care (01) ==
LOC: ER 08:38
DX: R05 Cough (principal); J34.89 Other specified disorders of nose and nasal sinuses; R51 Headache; R09.81 Nasal congestion; R09.89 Other specified symptoms and signs involving the circulatory and respiratory systems; Z79.899 Other long term (current) drug therapy; F17.200 Nicotine dependence, unspecified, uncomplicated
CPT/HCPCS: 99283; 96372; J1885

== ENCOUNTER 2019-09-10 09:24 | Emergency (ER) | payer SELFPAY ==
[2019-09-10] MEDS ORDERED: HYDROCODONE/ACETAMINOPHEN 5-325 MG TABLET PO ONE (10:16)
[2019-09-10] MEDS ORDERED: CYCLOBENZAPRINE HCL 10 MG TABLET PO ONE (10:16)
--- NOTE | 2019-09-10 10:16 | ER Document Report ---
ED General - General Chief Complaint: Neck Pain >24hrs old Stated Complaint: NECK INJURY Time Seen by Provider: 09/10/19 10:06 Primary Care Provider: [facility] [Provider Group] - Follow up in 1 week TRAVEL OUTSIDE OF THE [place] IN LAST 30 DAYS: No - HPI Notes: 28-year-old male to the emergency department with complaints of neck pain that began 2 days ago. He states that he was playing basketball on Saturday evening and going up for a lay up when another player slammed into him. He states that when that happened his neck went to his left side and his body went to the right. He states that he felt a crack in his neck and had some soreness. He states that as time has progressed he is gotten more and more sore. He is taking [id number] 800 mg ibuprofen and been using a massager. He states that this morning he woke up and he could not move his neck very much at all. He denies any other symptoms such as extremity weakness, arm numbness and tingling, nausea vomiting, or any other complaints. - Related Data Allergies/Adverse Reactions: No Known Allergies Allergy (Verified 06/11/19 08:40) Past Medical History - General Information source: Patient - Social History Smoking Status: Never Smoker Frequency of alcohol use: None Drug Abuse: Marijuana Family History: Reviewed & Not Pertinent, Arthritis, CAD, CVA, DM, Hyperli pidemia, Hypertension, Malignancy, Thyroid Disfunction Pulmonary Medical History: Reports: Hx Bronchitis Renal/ Medical History: Denies: Hx Peritoneal Dialysis Musculoskeletal Medical History: Reports Hx Musculoskeletal Trauma Traumatic Medical History: Reports: Hx Fractures - left ankle Past Surgical History: Reports: Other - Ocular surgery - Immunizations Immunizations up to date: Yes Hx Diphtheria, Pertussis, Tetanus Vaccination: Yes Review of Systems - Review of Systems Constitutional: denies: Chills, Fever, Malaise EENT: denies: Ear pain, Throat pain Cardiovascular: denies: Chest pain, Palpitations, Heart racing, Orthopnea, Dyspnea, Syncope, Dizziness, Lightheaded Respiratory: denies: Cough, Hurts to breathe, Short of breath Gastrointestinal: denies: Abdominal pain, Diarrhea, Nausea, Vomiting Musculoskeletal: See HPI, Neck pain Skin: No symptoms reported Neurological/Psychological: No symptoms reported -: Yes All other systems reviewed and negative Physical Exam - Vital signs Vitals: Temp Pulse Resp BP Pulse Ox 98.6 F 50 L 16 134/72 H 98 09/10/19 09:29 09/10/19 09:29 09/10/19 09:29 09/10/19 09:29 09/10/19 09:29 Interpretation: Normal - General General appearance: Appears well, Alert In distress: None - HEENT Head: Normocephalic, Atraumatic Eyes: Normal Pupils: PERRL Ears: Normal External canal: Normal Tympanic membrane: Normal Sinus: Normal Nasal: Normal Mouth/Lips: Normal Mucous membranes: Normal Pharynx: Normal. No: Potential airway comprom. Neck: Other - there is TTP over the right trapezius muscle with noted spasm along the superior norder and at the insertion site on the neck. Patient also has midline cervical vertebral TTP. there is no step off or deformity. Patient does have decreased ROM in the neck. He has approximately 60 degrees in rotation of the neck, about 45 degrees in trying to touch his ear to shoulder on both sides. He has no meningeal signs - he can touch his chin to his chest with ease and no pain, No difficulty with extension of the neck. - Respiratory Respiratory status: No respiratory distress Chest status: Nontender Breath sounds: Normal Chest palpation: Normal - Cardiovascular Rhythm: Regular Heart sounds: Normal auscultation Murmur: No - Abdominal Inspection: Normal Distension: No distension Bowel sounds: Normal Tenderness: Nontender Organomegaly: No organomegaly - Back Back: Nontender. No: Vertebra tenderness Notes: there is no midline TTP over the thoracic and lumbar spine. There is no step off or deformity. Patient can ambulate without difficulty. - Extremities General upper extremity: Normal inspection, Nontender, Normal color, Normal ROM, Normal temperature General lower extremity: Normal inspection, Nontender, Normal color, Normal ROM, Normal temperature, Normal weight bearing. No: Aracelis's sign - Neurological Neuro grossly intact: Yes Cognition: Normal Orientation: AAOx4 Carson Coma Scale Eye Opening: Spontaneous Carson Coma Scale Verbal: Oriented Carson Coma Scale Motor: Obeys Commands Raphael Coma Scale Total: 15 Speech: Normal Cranial nerves: Normal Cerebellar coordination: Normal. No: Gait ataxia Motor strength normal: LUE, RUE, LLE, RLE Additional motor exam normals: Equal health education director. No: Pronator drift Sensory: Normal - Psychological Associated symptoms: Normal affect, Normal mood - Skin Skin Temperature: Warm Skin Moisture: Dry Skin Color: Normal Course - Re-evaluation Re-evalutation: Cervical Spine X-Ray 09/10/19 10:58 IMPRESSION: NO SIGNIFICANT RADIOGRAPHIC FINDING IN THE CERVICAL SPINE. Impression: Neck strain and spasm involving the trapezius muscle. XR reassuring. He has no meningeal signs. Will send home with pain meds and muscle relaxants. Encouraged gentle stretching. PCP follow up. - Vital Signs Vital signs: Temp Pulse Resp BP Pulse Ox 97.8 F 67 16 137/84 H 100 09/10/19 12:08 09/10/19 12:08 09/10/19 12:08 09/10/19 12:08 09/10/19 12:08 Discharge - Discharge Clinical Impression: Muscle spasm Trapezius strain Qualifiers: Encounter type: initial encounter Laterality: right Qualified Code(s): S46.811A - Strain of other muscles, fascia and tendons at shoulder and upper arm level, right arm, initial encounter Condition: Stable Disposition: HOME, SELF-CARE Instructions: Muscle Strain ([facility]) Additional Instructions: Alternate between ice and heat. Gentle stretching. Take medicines as prescribed. Return if worsening pain or any other concerning symptoms. No basketball until completely healed. Follow up with primary care. Prescriptions: Ketorolac Tromethamine [Toradol 10 mg Tablet] 10 mg PO Q8HP PRN #24 tablet PRN Reason: Cyclobenzaprine HCl [Flexeril 10 mg Tablet] 10 mg PO TID #21 tablet Lidocaine [Lidoderm 5% (700 mg) Transdermal Patch] 1 patch TP DAILY #30 adh..patch Forms: Return to Work Referrals: [facility] [Provider Group] - Follow up in 1 week
[2019-09-10 12:10] VITALS: BP 137/84
--- NOTE | 2019-09-10 12:45 | RADIOLOGY REPORT (SQ) ---
EXAM DESCRIPTION: CERV SP 3 VIEW OR LESS COMPLETED DATE/TIME: 09/10/2019 11:27 am REASON FOR STUDY: neck pain COMPARISON: None. NUMBER OF VIEWS: Three views. TECHNIQUE: AP, lateral and odontoid radiographic images acquired of the cervical spine. LIMITATIONS: None. FINDINGS: MINERALIZATION: Normal. ALIGNMENT: Anatomic. VERTEBRAE: Vertebral bodies of normal height. DISCS: No significant disc space narrowing. No large osteophytes. HARDWARE: None in the spine. SOFT TISSUES: No masses or calcifications. Lung apices clear. OTHER: No other significant finding. IMPRESSION: NO SIGNIFICANT RADIOGRAPHIC FINDING IN THE CERVICAL SPINE. TECHNICAL DOCUMENTATION: JOB ID: [id number]- All Rights Reserved Reading location - IP/workstation name: [email or web address]
== END 2019-09-10 12:21 | disposition home or self-care (01) ==
LOC: ER 09:24
DX: S29.012A Strain of muscle and tendon of back wall of thorax, initial encounter (principal); S16.1XXA Strain of muscle, fascia and tendon at neck level, initial encounter; W50.0XXA Accidental hit or strike by another person, initial encounter; Y93.67 Activity, basketball; M54.2 Cervicalgia; M62.830 Muscle spasm of back
CPT/HCPCS: 72040; 99283

== ENCOUNTER 2019-12-14 12:27 | Emergency (ER) | payer SELFPAY ==
[2019-12-14 12:50] VITALS: BP 125/79
--- NOTE | 2019-12-14 12:57 | ER Document Report ---
HPI - HPI Time Seen by Provider: 12/14/19 12:52 Pain Level: 4 Notes: Patient is a 28-year-old male who presents to the ED complaining of nasal congestion/discharge, dry nonproductive cough, fever, body ache 1 day. Patient states that he is still eating and drinking without difficulties, but does have a decreased p.o. intake. He is still urinating normally having normal bowel movements. Patient has been using some [id number] meds for symptoms. He denies any significant past medical history including cardiopulmonary history and immunocompromised conditions. Pt states that his fever has not returned since last night. He also has right mid back soreness to the muscle after he did home exercises a few days ago. The pain does not radiate. Denies any headache, neck pain, sore throat, chest pain, palpitations, syncope, shortness of breath, wheeze, dyspnea, abdominal pain, nausea/vomiting/diarrhea, urinary retention, dysuria, hematuria, loss of control of bowel or bladder, numbness/tingling, saddle anesthesia, muscle paralysis/weakness, or rash. - ROS Systems Reviewed and Negative: Yes All other systems reviewed and negative - REPRODUCTIVE Reproductive: DENIES: : Past Medical History - Social History Smoking Status: Current Every Day Smoker Chew tobacco use (# tins/day): No Frequency of alcohol use: None Drug Abuse: None Family History: Reviewed & Not Pertinent, Arthritis, CAD, CVA, DM, Hy perlipidemia, Hypertension, Malignancy, Thyroid Disfunction Patient has suicidal ideation: No Patient has homicidal ideation: No Pulmonary Medical History: Reports: Hx Bronchitis Renal/ Medical History: Denies: Hx Peritoneal Dialysis Musculoskeletal Medical History: Reports Hx Musculoskeletal Trauma Traumatic Medical History: Reports: Hx Fractures - left ankle Past Surgical History: Reports: Other - Ocular surgery - Immunizations Immunizations up to date: Yes Hx Diphtheria, Pertussis, Tetanus Vaccination: Yes Vertical Provider Document - CONSTITUTIONAL Agree With Documented VS: Yes Notes: PHYSICAL EXAMINATION: GENERAL: Well-appearing, well-nourished and in no acute distress. A&Ox4. Answers questions appropriately. Moves comfortably w/o notable distress HEAD: Atraumatic, normocephalic. EYES: Pupils equal round and reactive to light, extraocular movements intact, sclera anicteric, conjunctiva are normal. ENT: Nares patent and with clear discharge. oropharynx no erythema without exudates. No tonsilar hypertrophy without erythema or exudate. No palatine shift. Uvula midline. No tongue protrusion. No drooling, hoarseness, or airway compromise. Moist mucous membranes. No sinus tenderness. NECK: Normal range of motion, supple without lymphadenopathy. No rigidity/meningismus. LUNGS: Breath sounds clear to auscultation bilaterally and equal. No wheezes rales or rhonchi. No retractions HEART: Regular rate and rhythm without murmurs, rubs, gallops. ABDOMEN: Soft, nontender, nondistended abdomen. No guarding, no rebound. Normal bowel sounds present. No CVA tenderness bilaterally. Musculoskeletal: LE's b/l: FROM to passive/active. Strength 5+/5. No deficits noted. No bony tenderness of extremities. Back: FROM to passive/active. Strength 5+/5. No vertebral point tenderness, stepoffs, or deformities. No other bony tenderness, erythema, swelling, or ecchymosis. SLR negative b/l. + Reproducible tenderness to the Rt T-paraspinal mm. Mild spasming. No SI jt tenderness. No foot drop NEUROLOGICAL: Normal speech, normal gait. PSYCH: Normal mood, normal affect. SKIN: Warm, Dry, normal turgor, no rashes or lesions noted. - INFECTION CONTROL TRAVEL OUTSIDE OF THE [place] IN LAST 30 DAYS: No Course - Re-evaluation Re-evalutation: 12/14/19 13:00 Patient is an afebrile, well-hydrated, 28-year-old female who presents to the ED with acute right mid back pain (suspect sprain/strain), acute URI-suspect viral/influenza. Vitals are acceptable. PE is otherwise unremarkable. No labs or imaging warranted at this time based on H&P. Patient has no significant cardiopulmonary or immunocompromised medical conditions. Patient's lungs are clear to auscultation bilaterally without tachycardia, hypoxia, or tachypnea. Patient is tolerating p.o. without any difficulties. Thoroughly reviewed the risks, benefits, potential side effects, estimated cost without insurance with patient. After thorough review, patient declined Tamiflu at this time. Low suspicion for any meningitis, sepsis, peritonsillar/pharyngeal abscess, respiratory compromise, severe dehydration, fracture, expanding/ruptured AAA, cauda equina syndrome, epidural mass lesion/abscess, herniated disc causing severe spinal stenosis, or other emergent systemic condition at this time. Patient is aware this condition can change from initial presentation and she needs to monitor symptoms closely. Pt declined any meds. Conservative measures otherwise for symptoms. Recheck with your PCM in 3-5 days. Return to the ED with any worsening/concerning symptoms otherwise as reviewed in discharge. Patient is in agreement. - Vital Signs Vital signs: Temp Pulse Resp BP Pulse Ox 98.7 F 62 18 125/79 100 12/14/19 12:49 12/14/19 12:49 12/14/19 12:49 12/14/19 12:49 12/14/19 12:49 Discharge - Discharge Clinical Impression: Acute URI, Mid back pain on right side Condition: Stable Disposition: HOME, SELF-CARE Instructions: Upper Respiratory Illness ([facility]) Additional Instructions: Maintain adequate fluid intake tylenol/ibuprofen as needed alternating every 3 hours for fever/body ache over the counter cold medication as needed for symptoms Humidified air may help Wash your hands regularly Wear a mask when coughing Light stretches, massage, ice/heat, stretching F/u: with your PCM in 3-5 days for a recheck Return to the ED with any fever, altered mental status/behavior, chest pain, palpitations, syncope, headache, neck pain/stiffness, shortness of breath, chest pains, wheezing, drooling, trouble swallowing/breathing, abdominal pain, n/v/d, rash, or worsening/concerning symptoms otherwise. Referrals: [facility] [Provider Group] - Follow up as needed
== END 2019-12-14 12:58 | disposition home or self-care (01) ==
LOC: ER 12:27
DX: J06.9 Acute upper respiratory infection, unspecified (principal); M54.9 Dorsalgia, unspecified; R09.81 Nasal congestion; R09.89 Other specified symptoms and signs involving the circulatory and respiratory systems; R05 Cough; R50.9 Fever, unspecified; M79.10 Myalgia, unspecified site; R63.0 Anorexia; F17.200 Nicotine dependence, unspecified, uncomplicated
CPT/HCPCS: 99283